=== PATIENT | female | born 1990 | race Caucasian/White ===

== ENCOUNTER 2016-08-31 10:08 | Emergency (ER) | payer OTHER ==
[2016-08-31 10:20] VITALS: BP 132/75
--- NOTE | 2016-08-31 10:59 | XRAY Preliminary Report ---
Exam: XR Finger(s) LT IMPRESSION: 1. No acute osseous abnormalities. [facility] SITE ID: [id number]
--- NOTE | 2016-08-31 11:02 | XRAY Report ---
EXAM: LEFT SECOND DIGIT RADIOGRAPHY EXAM DATE: 08/31/2016 10:36 AM. CLINICAL HISTORY: Injury, swelling. COMPARISON: None. TECHNIQUE: 3 views. FINDINGS: Bones: No acute fracture or bony lesion. Joints: No dislocation. Slight flexion of the left second digit at the PIP joint. Soft Tissues: Soft tissue swelling. IMPRESSION: 1. No acute osseous abnormalities. [facility] Referring Provider Line: [phone] SITE ID: [id number]
--- NOTE | 2016-08-31 11:34 | ED Physician Documentation ---
PD HPI UPPER EXT INJURY - Stated complaint Stated Complaint: FINGER INJURY - Chief complaint Chief Complaint: Ext Problem - History obtained from History obtained from: Patient - History of Present Illness Location: Left, Finger (index) Type of injury: Blunt / blow Where injury occurred: Work Timing - onset: Today Timing - duration: Minutes Timing - details: Abrupt onset, Still present Improved by: Rest, Immobilization Worsened by: Moving, Palpating Associated symptoms: No: Weakness, Numbness, Tingling, Swelling Contributing factors: No: Anticoagulated Similar symptoms before: Has not had sx before Recently seen: Not recently seen - Additonal information Additional information: 25-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 She has pain over the proximal interphalangeal joint of the left index finger. Review of Systems Constitutional: denies: Fever Eyes: denies: Decreased vision Ears: denies: Ear pain Throat: denies: Swollen tonsils Respiratory: denies: Cough GI: denies: Vomiting Skin: denies: Laceration (s) Musculoskeletal: reports: Extremity pain, Joint pain. denies: Neck pain, Back pain PD PAST MEDICAL HISTORY - Present Medications Home Medications: Ambulatory Orders Medication Instructions Recorded Confirmed Cyclobenzaprine [Flexeril] 10 mg PO Q6HR PRN 08/31/16 08/31/16 Esomeprazole Magnesium [Nexium] 08/31/16 Fluticasone [Flonase] 08/31/16 Norgestimate-Ethinyl Estradiol 1 tab PO DAILY 08/31/16 08/31/16 [Ortho Tri-Cyclen 28 Tablet] - Allergies Allergies/Adverse Reactions: Allergies Allergy/AdvReac Type Severity Reaction Status Date / Time pain med Allergy numbness Uncoded 08/31/16 10:18 PD ED PE NORMAL - Vitals Vital signs reviewed: Yes (hypertensive ) - General General: No acute distress, Well developed/nourished - HEENT HEENT: Atraumatic, PERRL - Respiratory Respiratory: No respiratory distress - Derm Derm: Normal color, Warm and dry, No rash - Extremities Extremities: No deformity, No edema, Other (There is maximal tenderness over the PIP joint of the left index. There is restricted movement secondary to pain but she is able to move it through the full range. The distal N/V is intact. ) - Neuro Neuro: No motor deficit, No sensory deficit - Psych Psych: Normal mood, Normal affect Results - Vitals Vitals: Vital Signs - 24 hr 08/31/16 10:11 Temperature 36.4 C L Heart Rate 78 Respiratory 16 Rate Blood Pressure 132/75 H O2 Saturation 99 Oxygen O2 Source Room air - Rads (name of study) left fingers. Radiology: Prelim report reviewed (Impression: 1. No acute osseous abnormalities.), EMP read indepedently, See rad report Procedures - Splint (location) left index Splint applied by: Tech Type of splint: Metal foam finger splint Other: Patient tolerated well, No complications, Neurovascular intact, Good alignment PD MEDICAL DECISION MAKING - ED course Complexity details: considered differential, d/w patient ED course: 25-year-old female with acute finger sprain is placed into an AlumaFoam splint. Departure - Departure Disposition: 01 Home, Self Care Clinical Impression: Sprain of finger of left hand Qualifiers: Encounter type: initial encounter Qualified Code(s): S63.619A - Unspecified sprain of unspecified finger, initial encounter Condition: Stable Instructions: ED Sprain Finger Follow-Up: JEMMA PEREZ [Primary Care Provider] -
== END 2016-08-31 11:41 | disposition home or self-care (01) ==
LOC: ED 10:08
DX: S63.611A Unspecified sprain of left index finger, initial encounter (principal); W22.8XXA Striking against or struck by other objects, initial encounter; Y92.89 Other specified places as the place of occurrence of the external cause; Y99.1 Military activity
CPT/HCPCS: 29130; 73140; 99283

== ENCOUNTER 2017-12-13 13:26 | Emergency (ER) | payer OTHER ==
[2017-12-13 13:41] VITALS: BP 127/81
--- NOTE | 2017-12-13 14:43 | ED Physician Documentation ---
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 She stood up under an aircraft, hitting the left parietal region of her head on the edge of a metal component. She denies loss of consciousness. She denies neck pain or any other injuries. She became concerned with the bleeding that was noted. Vaccinations, including tetanus, are up-to-date. Review of Systems Eyes: denies: Decreased vision Ears: denies: Tinnitus/ringing GI: denies: Nausea, Vomiting Skin: reports: Laceration (s) Musculoskeletal: denies: Neck pain Neurologic: reports: Head injury. denies: Focal weakness, Numbness, Altered mental status, Headache, LOC PD PAST MEDICAL HISTORY - Present Medications Home Medications: Ambulatory Orders Medication Instructions Recorded Confirmed Cyclobenzaprine [Flexeril] 10 mg PO Q6HR PRN 08/31/16 08/31/16 Esomeprazole Magnesium [Nexium] 08/31/16 Fluticasone [Flonase] 08/31/16 Norgestimate-Ethinyl Estradiol 1 tab PO DAILY 08/31/16 08/31/16 [Ortho Tri-Cyclen 28 Tablet] - Allergies Allergies/Adverse Reactions: Allergies Allergy/AdvReac Type Severity Reaction Status Date / Time nut - unspecified Allergy Anaphylaxis Verified 12/13/17 13:47 tramadol Allergy Anaphylaxis Verified 12/13/17 13:46 pain med Allergy numbness Uncoded 08/31/16 10:18 PD ED PE NORMAL - Vitals Vital signs reviewed: Yes (normal) - General General: Alert and oriented X 3, Well developed/nourished - HEENT HEENT: PERRL, EOMI, Ears normal, Other (There is a 2 cm long superficial scalp laceration on the left parietal region of the scalp. The wound edges are well apposed, and there is currently no bleeding. There is no swelling or bony step- off palpated.) - Neck Neck: No bony TTP, Other (Full cervical range of motion, without tenderness.) - Cardiac Cardiac: RRR - Respiratory Respiratory: No respiratory distress - Neuro Neuro: Alert and oriented X 3, No motor deficit, Normal speech Results - Vitals Vitals: Oxygen O2 Source Room air PD MEDICAL DECISION MAKING - ED course Complexity details: considered differential, d/w patient, d/w family ED course: The patient's presentation is significant for superficial scalp laceration that did not warrant suturing or stapling. The wound was thoroughly cleaned. 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 Departure - Departure Disposition: 01 Home, Self Care Clinical Impression: Superficial laceration of scalp Qualifiers: Encounter type: initial encounter Qualified Code(s): S01.01XA - Laceration without foreign body of scalp, initial encounter Condition: Stable Instructions: ED Laceration Small Superf No Sutr Follow-Up: JEMMA PEREZ [Physician No Access] - Comments: Keep the wound clean. It is okay to shampoo your hair. Use Tylenol or ibuprofen if needed for discomfort. Follow-up with your primary physician if not improving within 1 week. Return to the emergency department if you develop increasing headache, persistent vomiting, or any sign of infection. Forms: Activity restrictions Discharge Date/Time: 12/13/17 14:55
== END 2017-12-13 14:55 | disposition home or self-care (01) ==
LOC: ED 13:26
DX: S01.01XA Laceration without foreign body of scalp, initial encounter (principal); W22.09XA Striking against other stationary object, initial encounter; Y99.1 Military activity
CPT/HCPCS: 99282

== ENCOUNTER 2020-05-07 04:23 | Emergency (ER) | payer OTHER ==
[2020-05-07 04:56] LABS: BASOPHILS # (AUTO) 0.1 10^3/uL (0.0-0.1); BASOPHILS % (AUTO) 0.8 %; EOSINOPHILS # (AUTO) 0.3 10^3/uL (0.0-0.7); EOSINOPHILS % (AUTO) 3.2 %; HCT - HEMATOCRIT 36.4 % (37.0-47.0); HGB - HEMOGLOBIN 12.1 g/dL (12.0-16.0); LYMPHOCYTES # (AUTO) 2.9 10^3/uL (1.5-3.5); LYMPHOCYTES % (AUTO) 29.5 %; MEAN CORPUSCULAR HEMOGLOBIN 31.2 pg (27.0-31.0); MEAN CORPUSCULAR HGB CONC 33.2 g/dL (32.0-36.0); MEAN CORPUSCULAR VOLUME 93.8 fL (81.0-99.0); MEAN PLATELET VOLUME 9.4 fL (7.9-10.8); MONOCYTES # (AUTO) 0.7 10^3/uL (0.0-1.0); MONOCYTES % (AUTO) 7.1 %; NEUTROPHILS # (AUTO) 5.8 10^3/uL (1.5-6.6); NEUTROPHILS % (AUTO) 59.1 %; PLT - PLATELET COUNT 330 10^3/uL (130-450); RED BLOOD COUNT 3.88 10^6/uL (4.20-5.40); WHITE BLOOD COUNT 9.9 x10^3/uL (4.8-10.8)
[2020-05-07 05:12] LABS: ALBUMIN 4.3 g/dL (3.2-5.5); ALBUMIN/GLOBULIN RATIO 1.3 (1.0-2.2); BILIRUBIN,TOTAL 0.4 mg/dL (0.2-1.0); CALCIUM 9.7 mg/dL (8.5-10.3); CREATININE 0.7 mg/dL (0.4-1.0); POTASSIUM 3.3 mmol/L (3.5-5.0); TOTAL PROTEIN 7.6 g/dL (6.7-8.2)
[2020-05-07 05:30] LABS: BILIRUBIN,URINE NEGATIVE (NEGATIVE); GLUCOSE, URINE (UA) NEGATIVE (NEGATIVE); KETONES,URINE (UA) NEGATIVE (NEGATIVE); LEUKOCYTE ESTERASE, URINE NEGATIVE (NEGATIVE); NITRITE,URINE NEGATIVE (NEGATIVE); OCCULT BLOOD,URINE NEGATIVE (NEGATIVE); PROTEIN,URINE NEGATIVE (NEGATIVE); UROBILINOGEN,URINE 0.2 (NORMAL) E.U./dL (NORMAL)
[2020-05-07 05:31] LABS: CLARITY,URINE CLEAR (CLEAR)
[2020-05-07 05:32] LABS: HCG UR QUAL NEGATIVE
--- NOTE | 2020-05-07 05:39 | ED Physician Documentation ---
PD HPI ABD PAIN - Stated complaint Stated Complaint: AB PX/NAUSEA - Chief complaint Chief Complaint: Abd Pain - History obtained from History obtained from: Patient - History of Present Illness Timing - onset: How many days ago (3) Timing - duration: Days (3) Timing - details: Gradual onset, Still present Quality: Cramping, Sharp, Pain Location: Suprapubic Improved by: Laying still Worsened by: Moving, Position, Palpation Associated symptoms: No: Fever, Nausea, Vomiting, Hematemesis, Diarrhea, Constipation Similar symptoms before: No diagnosis Recently seen: Not recently seen - Additional information Additional information: 29-year-old female with an IUD in place has developed some pelvic cramping over the past 3 days that is more intense than usual for her. She states usually when her period begins she will get some sharp cramping pain that is occurred after she had her IUD in place. She has not had pain this bad previously. She denies any visceral symptoms she is eating well and she is not nauseous or vomiting does not have diarrhea. Review of Systems Constitutional: denies: Fever Eyes: denies: Decreased vision Ears: denies: Ear pain Nose: denies: Congestion Throat: denies: Sore throat Cardiac: denies: Chest pain / pressure, Palpitations Respiratory: denies: Dyspnea, Cough GI: reports: Abdominal Pain. denies: Nausea, Vomiting, Constipation, Diarrhea : denies: Dysuria, Frequency Skin: denies: Rash Musculoskeletal: denies: Neck pain, Back pain, Extremity pain Neurologic: denies: Generalized weakness, Focal weakness, Numbness PD PAST MEDICAL HISTORY - Past Medical History Past Medical History: Yes Other Past Medical History: plantar fascitits - Past Surgical History Past Surgical History: Yes - Present Medications Home Medications: Ambulatory Orders Medication Instructions Recorded Confirmed Escitalopram [Lexapro] 20 mg PO DAILY 05/07/20 05/07/20 Fluticasone [Flonase] PRN PRN 05/07/20 Loratadine [Claritin] 10 mg PO 05/07/20 Omeprazole Magnesium 20 mg PO 05/07/20 - Allergies Allergies/Adverse Reactions: Allergies Allergy/AdvReac Type Severity Reaction Status Date / Time nut - unspecified Allergy Anaphylaxis Verified 12/13/17 13:47 tramadol Allergy Anaphylaxis Verified 12/13/17 13:46 pain med Allergy numbness Uncoded 08/31/16 10:18 - Social History Does the pt smoke?: No Smoking Status: Never smoker Does the pt drink ETOH?: Yes Does the pt have substance abuse?: No - Immunizations Immunizations are current?: Yes - POLST Patient has POLST: No PD ED PE NORMAL - Vitals Vital signs reviewed: Yes (hypertensive ) - General General: Alert and oriented X 3, No acute distress, Well developed/nourished - HEENT HEENT: Atraumatic, PERRL, EOMI - Neck Neck: Supple, no meningeal sign - Cardiac Cardiac: RRR, No murmur - Respiratory Respiratory: No respiratory distress, Clear bilaterally - Abdomen Abdomen: Normal bowel sounds, Soft, Non distended, No organomegaly, Other (mild suprapubic tenderness ) - Back Back: No CVA TTP, No spinal TTP - Derm Derm: Normal color, Warm and dry, No rash - Extremities Extremities: No deformity, No edema - Neuro Neuro: Alert and oriented X 3, resident in diagnostic radiology 2-12 intact, No motor deficit, No sensory deficit, Normal speech Eye Opening: Spontaneous Motor: Obeys Commands Verbal: Oriented GCS Score: 15 - Psych Psych: Normal mood, Normal affect Results - Vitals Vitals: Vital Signs - 24 hr 05/07/20 05/07/20 04:30 06:04 Temperature 37.0 C 37.1 C Heart Rate 92 68 Respiratory 18 16 Rate Blood Pressure 125/87 H 128/74 O2 Saturation 99 100 Oxygen O2 Source Room air - Labs Labs: Laboratory Tests 05/07/20 05/07/20 05/07/20 04:50 04:50 05:16 WBC 9.9 RBC 3.88 L Hgb 12.1 Hct 36.4 L MCV 93.8 MCH 31.2 H MCHC 33.2 RDW 13.0 Plt Count 330 MPV 9.4 Neut # (Auto) 5.8 Lymph # (Auto) 2.9 [place] # (Auto) 0.7 Eos # (Auto) 0.3 Baso # (Auto) 0.1 Absolute Nucleated RBC 0.00 Nucleated RBC % 0.0 Sodium 135 Potassium 3.3 L Chloride 100 L Carbon Dioxide 23 Anion Gap 12.0 BUN 11 Creatinine 0.7 Estimated GFR (MDRD) 98 Glucose 99 Calcium 9.7 Total Bilirubin 0.4 AST 23 ALT 19 Alkaline Phosphatase 50 Total Protein 7.6 Albumin 4.3 Globulin 3.3 Albumin/Globulin Ratio 1.3 Lipase 24 Urine Color YELLOW Urine Clarity CLEAR Urine pH 6.0 Ur Specific [place] 1.025 Urine Protein NEGATIVE Urine Glucose (UA) NEGATIVE Urine Ketones NEGATIVE Urine Occult Blood NEGATIVE Urine Nitrite NEGATIVE Urine Bilirubin NEGATIVE Urine Urobilinogen 0.2 (NORMAL) Ur Leukocyte Esterase NEGATIVE Ur Microscopic Review NOT INDICATED Urine Culture Comments NOT INDICATED Urine HCG, Qual NEGATIVE - Rads (name of study) pelvic ultrasound Radiology: Prelim report reviewed (Impression: 1. Unremarkable pelvic ultrasound with no evidence of ovarian torsion. 2. IUD in satisfactory position.), EMP read indepedently, See rad report Procedures - Bedside sono Bedside sono by EMP: No obvious stoneWith use bedside ultrasound the right upper quadrant is imaged there is an in the gallbladder that does not appear enlarged or inflamed. There is no pericholecystic fluid and no thickening of the gallbladder wall. The pelvis is evaluated bladder is full the uterus appears to have the foreign body in it consistent with the IUD in the correct position. I am unable to image the ovaries. PD MEDICAL DECISION MAKING - ED course Complexity details: reviewed old records, reviewed results, re-evaluated patient, considered differential, d/w patient ED course: 29-year-old female with pelvic cramping and an IUD in place has ultrasound performed without specific findings. Since she has had her IUD in place about 6 months ago she has had monthly series of cramps. She is not currently in pain. We will refer her back to her ELDER ASSISTANT. Departure - Departure Disposition: 01 Home, Self Care Clinical Impression: Symptom related to intrauterine device (IUD) Qualifiers: Encounter type: initial encounter Qualified Code(s): T83.9XXA - Unspecified complication of genitourinary prosthetic device, implant and graft, initial encounter Condition: Stable Instructions: Control IUD Follow-Up: MEGAN MARSHALL MD [Primary Care Provider] - Comments: Today on your work-up, your ultrasound was unremarkable, your IUD does appear to be in the correct place and there is no evidence of ovarian cysts, torsion, or rupture. Follow-up with your ELDER ASSISTANT doctor. Discharge Date/Time: 05/07/20 06:10
[2020-05-07 06:10] VITALS: BP 128/74
--- NOTE | 2020-05-07 09:03 | Ultrasound Report ---
PROCEDURE: Pelvic w/Transvag+Doppler Comp INDICATIONS: Right pelvic pain. TECHNIQUE: Real-time scanning was performed of the pelvic organs, with image documentation. Additional endovagi nal scanning was necessary due to incomplete visualization of the adnexal and endometrial structures by transabdominal scanning. COMPARISON: None. FINDINGS: Small amount of physiologic free fluid in the cul-de-sac. Uterus: Uterus is normal in size at 3.2 x 4.4 x 7 point cm. The endometrium measures 3 mm in combin ed thickness. Normal position of IUD. No uterine mass identified. There is a 5 mm nabothian cyst note d. Ovaries: Both ovaries normal in size and appearance. Normal color Doppler and spectral appearance of both ovaries, with no findings of torsion. IMPRESSION: Normal study. No findings of torsion. IUD in appropriate position. Reviewed by: Christian Crawford MD on 05/07/2020 9:02 AM PDT Approved by: Christian Crawford MD on 05/07/2020 9:02 AM PDT Station ID: [id number]
== END 2020-05-07 06:10 | disposition home or self-care (01) ==
LOC: ED 04:23
DX: T83.84XA Pain due to genitourinary prosthetic devices, implants and grafts, initial encounter (principal); Y84.8 Other medical procedures as the cause of abnormal reaction of the patient, or of later complication, without mention of misadventure at the time of the procedure
CPT/HCPCS: 36415; 80053; 81001; 81003; 81025; 83690; 85025; 87086; 93975; 99284